=== PATIENT | female | born 1995 | race Caucasian/White ===

== ENCOUNTER 2023-10-14 12:26 | Emergency (ER) | payer OTHER ==
[~2023-10-14] VITALS: Ht 154.9 cm; Wt 91.0 kg
[2023-10-14 12:39] VITALS: O2SAT 97
[2023-10-14] MEDS: BACITRACIN ZINC OINT UDPKT TOP ONE (13:15)
[2023-10-14] MEDS: LIDOCAINE HCL/PF 1% 10 MG/ML 5ML VIAL INFIL ONE (13:50)
[2023-10-14] MEDS ORDERED: IBUP-2028 MT (14:32)
[2023-10-14] MEDS: KETOROLAC 15MG/ML VIAL IM ONE (14:50)
[2023-10-14 15:00] VITALS: BP 119/77; PULSE 68; RESP 17; TEMP 97.9
== END 2023-10-14 17:52 | disposition home or self-care (01) ==
LOC: ER 13:43
DX: L02.214 Cutaneous abscess of groin (principal)
CPT/HCPCS: 10060; 96372; 99284; J1885; J3490; Z7610 ×2